=== PATIENT | female | born 1975 | race Caucasian/White ===

== ENCOUNTER 2017-03-06 09:40 | Emergency (ER) | payer OTHER ==
[2017-03-06 09:50] VITALS: BP 139/92
== END 2017-03-06 12:20 | disposition home or self-care (01) ==
LOC: ED 09:40
DX: G58.8 Other specified mononeuropathies (principal)

== ENCOUNTER 2018-03-21 07:23 | Emergency (ER) | payer OTHER ==
[~2018-03-21] VITALS: Ht 170.2 cm; Wt 82.6 kg
[2018-03-21 07:31] VITALS: Ht 170.2 cm; Wt 82.6 kg
[2018-03-21 08:16] LABS: CALCIUM 8.5 mg/dL (8.5-10.1); CARBON DIOXIDE 24.1 mmol/L (21-32); CHLORIDE SERUM 104 mmol/L (98-107); CREATININE SERUM 0.6 mg/dL (0.6-1.0); GFR1 > 60 mL/min; GLUCOSE SERUM 104 mg/dL (74-106); POTASSIUM SERUM 4.4 mmol/L (3.5-5.1); SODIUM SERUM 136 mmol/L (136-145)
[2018-03-21 08:18] LABS: BASOPHIL % 0.5 % (0-2); PLATELET COUNT 284 x10^3mcL (130-400); RED CELL DISTRIBUTION WIDTH 31.1 % (11.5-14.5)
[2018-03-21 08:21] LABS: ALBUMIN 3.7 g/dL (3.4-5.0); ALKALINE PHOSPHATASE 88 U/L (46-116); ALT/SGPT 27 U/L (14-59); AMYLASE 40 U/L (25-115); AST/SGOT 22 U/L (15-37); BILIRUBIN TOTAL 0.72 mg/dL (0.20-1.00); LIPASE 110 IU/L (73-393); TOTAL PROTEIN, SERUM 7.8 g/dL (6.4-8.2)
[2018-03-21 09:25] VITALS: BP 158/91
== END 2018-03-21 09:23 | disposition home or self-care (01) ==
LOC: ED 07:23
PROVIDERS: Emergency Medicine
DX: K80.50 Calculus of bile duct without cholangitis or cholecystitis without obstruction (principal)
CPT/HCPCS: J1885

== ENCOUNTER 2018-12-12 10:29 | Emergency (ER) | payer OTHER ==
[~2018-12-12] VITALS: Ht 160 cm; Wt 85.7 kg
[2018-12-12 10:32] VITALS: BP 141/72; Ht 160 cm; Wt 85.7 kg
== END 2018-12-12 11:29 | disposition home or self-care (01) ==
LOC: ED 10:29
DX: S81.811A Laceration without foreign body, right lower leg, initial encounter (principal); W25.XXXA Contact with sharp glass, initial encounter; Y93.89 Activity, other specified; Y92.89 Other specified places as the place of occurrence of the external cause; Y99.8 Other external cause status
CPT/HCPCS: 90715